=== PATIENT | female | born 1935 | race Caucasian/White ===

== ENCOUNTER 2019-06-16 09:43 | Outpatient (CLI) | payer MEDICARE, SELFPAY ==
--- NOTE | ~2019-06-16 | MR_ITS ---
EXAMINATION: MR lumbar spine wo con EXAM DATE: 06/16/2019 10:35 INDICATION: Lumbar radiculopathy, right leg, hip pain. History of breast cancer. TECHNIQUE: Multi-sequential, multiplanar MR images of the lumbar spine were obtained without contrast . Sagittal T1, T2, T2 fat saturation images. Axial T2 weighted images. There is no prior study for comparison. Correlation was made with x-ray 05/29/2019. FINDINGS: There is moderate disc disease L4-5 and L5-S1. There is 3 mm retrolisthesis L5 on S1. The v ertebral bodies are otherwise aligned. Mild disc disease at the upper lumbar levels. The conus medull randall terminates at the L1/2 level and has normal signal intensity and morphology. There are no suspi cious marrow signal abnormalities. Paraspinal soft tissue is unremarkable. Possible prior left hemila minotomy at L5, correlate with surgical history. Level by level evaluation: T12-L1: Disc does not extend beyond the endplate margin. Facet arthropathy: None. Neural foraminal stenosis: No stenosis. Central canal stenosis: No stenosis. L1-L2: There is a mild diffuse disc bulge. Facet arthropathy: Minimal. Neural foraminal stenosis: No stenosis. Central canal stenosis: No stenosis. L2-L3: There is a mild diffuse disc bulge. Facet arthropathy: Mild. Neural foraminal stenosis: Mild left. Central canal stenosis: No stenosis. L3-L4: There is a mild diffuse disc bulge. Facet arthropathy: Mild. Neural foraminal stenosis: Mild bilateral. Central canal stenosis: Mild. L4-L5: There is a mild to moderate diffuse disc bulge. Facet arthropathy: Mild to moderate . Ligamentum flavum enlargement. Neural foraminal stenosis: Moderate right, mild to moderate left. Central canal stenosis: Mild to moderate. L5-S1: There is a moderate diffuse disc bulge. Facet arthropathy: Mild to moderate. Neural foraminal stenosis: Moderate to severe left, mild to moderate right. Central canal stenosis: Mild. IMPRESSION: 1. Lower lumbar predominant spondylosis as detailed above. Reviewed, dictated and finalized at location B. INAL LEGAL ASSISTANT
== END 2019-06-16 09:44 | disposition home or self-care (01) ==
PROVIDERS: PCP Internal Medicine; Visit Provider Internal Medicine
DX: M47.26 Other spondylosis with radiculopathy, lumbar region (principal)
CPT/HCPCS: 72148

== ENCOUNTER 2019-06-19 15:30 | Outpatient (RCR) | payer MEDICARE, SELFPAY ==
--- NOTE | 2019-06-08 09:33 | PTOPEVAL ---
PHYSICAL THERAPY EVALUATION AND PLAN OF CARE 06-08-2019 The PT evaluation for the diagnosis of R leg and knee pain was completed today. The plan of treatment is for 2x/week for 3 weeks. Thank you for referring Mrs. Aldana to [facility]. Please review, sign, date and return this plan of care HIMA. I agree with and certify that the following plan of care is medically necessary. Referring Physician Date Attending Provider: Dashawn Armenta MD *PT Outpatient Evaluation Start: 06/08/19 08:23 Document 06/08/19 08:15 SHELL (Rec: 06/08/19 09:23 SHELL [email or web address]) Therapy Assessment Status Assessment Status Assessment Status Evaluation Outpatient Past Medical History Neurological History Hx Neurological Disorders No Significant History Cardiovascular History Hx Hypertension Yes: meds Respiratory History Hx Respiratory Disorders No Significant History Gastrointestinal History Hx Gastrointestinal Disorders No Significant History Genitourinary History Hx Genitourinary Disorders No Significant History Musculoskeletal History Hx Back Pain Yes: lumbar spacers in back 45 yr ago; no issues after Hx Other Musculoskeletal Disorders Yes: about 6 mo ago pain L lower leg, negative blood clot Endocrine History Hx Diabetes Yes: meds Hx Hypothyroidism Yes: meds HEENT History Hx Other HEENT Disorders Yes: wear glasses Integumentary History Hx Skin Disorders No Significant History Other History Hx Cancer Yes: Feb 2018-R breast lumpectomy and node removal Hx Chemotherapy Yes: difficulty with cancer maintenance meds-trying;Dr Reyez Hx Radiation Therapy Yes: 20 radiation treatments Evaluation Information Problem Diagnosis R leg and knee pain Onset Apr 08, 2019 Subjective Information onset of pain after cleaning Query Text:As Reported By Patient/ in basement, moving furniture; Family got worse, to ER Apr 20 and ; saw ortho ; pain is less than initially Diagnostic Tests X-Rays For This Problem Yes-lumbar severe disc degeneration /hip negative,knee negative Previous Treatments Previous Treatments For This Problem no PT treatments Prior Level of Function Activity Level (Last 3 Months) Occupation retired Hand Dominance Right Activity of Daily Living Ability Independent Indoor/Home Mobility Independent Community Mobility Independent Stairs Ability Independent Functional Cognition (Planning, Shopping Independent , Taking Medications) Cooking Yes Cleaning
--- NOTE | 2019-06-13 11:36 | PCPTNOTE ---
pt brought to dept a new order: from same dr, Dr Armenta with diagnosis of OA L umbar and R leg pain; her eval addressed hips and trunk, additional evaluation is not needed.
--- NOTE | 2019-06-26 09:06 | PCPTNOTE ---
Patient arrived to therapy session wanting to ask some questions about MRI results. She stated due to the MD findings with compression of spinal cord she was starting pain management this Tuesday and didn't see the need for physical therapy at this time. She doesn't want to do to much on the back without finding out from pain management MD on what she should do. Educated patient on importance of performing a stretching and exercise program at home. Advised PT of patients decision and will keep patient's chart open till she finds out more information from MD.
--- NOTE | 2019-07-13 08:30 | PCPTNOTE ---
PHYSICAL THERAPY DISCHARGE 07-13-2019 Attending Provider: Dashawn Armenta MD Patient:Allie Aldana Date of :1935 Mrs. Aldana has received 4 Physical Therapy sessions, from June 08 to June 26, for the diagnosis of LBP, pain in R leg and knee. She canceled 2 appointments. On June 26 she stated that she had an MRI and was referred to pain management dr and would let us know about any further PT or not. There was no further contact from pt, therefore she will be discharged from therapy at this time. The goals were not assessed. Thank you for referring Allie to [facility]. Please review, sign, date and return this discharge summary HIMA. I have been updated about the patient's current status and I agree with discharge from the above service at this time. Referring Physician Date
== END 2019-07-13 11:03 | disposition home or self-care (01) ==
LOC: ANHPT 15:30
PROVIDERS: PCP Internal Medicine; Visit Provider Orthopaedic Surgery
DX: M47.816 Spondylosis without myelopathy or radiculopathy, lumbar region (principal); M79.604 Pain in right leg
CPT/HCPCS: 97110; 97161

== ENCOUNTER 2019-09-14 09:23 | Outpatient (CLI) | payer MEDICARE, SELFPAY ==
--- NOTE | ~2019-09-14 | XR_ITS ---
XR thoracic spine 2V DATE: 09/14/2019 09:39 INDICATION: Thoracic spine pain between shoulders. No injury. TECHNIQUE: AP and lateral views COMPARISON: None FINDINGS: There is minimal dextroscoliosis. There is mild degenerative spurring. No fracture or dislocation or bone destruction is evident. The thoracic pedicles are intact. No clovis antwan soft tissue thickening. IMPRESSION: Mild scoliosis and degenerative change Reviewed, dictated and finalized at location A.
== END 2019-09-14 09:24 | disposition home or self-care (01) ==
PROVIDERS: PCP Internal Medicine; Visit Provider Internal Medicine
DX: M54.6 Pain in thoracic spine (principal); M41.84 Other forms of scoliosis, thoracic region
CPT/HCPCS: 72070

== ENCOUNTER 2020-07-17 10:30 | Outpatient (CLI) | payer MEDICARE, SELFPAY | END 2020-07-17 10:31 | disposition home or self-care (01) | LOC: ANHCOVIDVC 10:31 | PROVIDERS: PCP Internal Medicine | DX: Z23 Encounter for immunization (principal) | CPT/HCPCS: 0001A; 91300 ==

== ENCOUNTER 2020-08-07 10:26 | Outpatient (CLI) | payer MEDICARE, SELFPAY | END 2020-08-07 10:27 | disposition home or self-care (01) | LOC: ANHCOVIDVC 10:26 | PROVIDERS: PCP Internal Medicine | DX: Z23 Encounter for immunization (principal) | CPT/HCPCS: 0002A; 91300 ==

== ENCOUNTER 2021-06-30 16:36 | Outpatient (CLI) | payer MEDICARE, SELFPAY ==
--- NOTE | ~2021-06-30 | US_ITS ---
US renal BI 06/30/2021 17:14 Procedure: Realtime transabdominal ultrasound of the kidneys and bladder. Indication: Renal lesion Comparison: CT dated 08/26/2009. Findings: Renal echotexture is normal bilaterally without hydronephrosis, contour deforming mass or r enal calculus. The right kidney measures 9.2 cm and left kidney measures 9.0 cm. Bladder within norm al limits. Impression: 1: Unremarkable renal ultrasound. No stones, masses or hydronephrosis. Reviewed, dictated and finalized at location B. CTION MOLDING MACHINE OPERATOR Impression: 1: Unremarkable renal ultrasound. No stones, masses or hydronephrosis.
== END 2021-06-30 16:37 | disposition home or self-care (01) ==
PROVIDERS: PCP Internal Medicine; Visit Provider Internal Medicine
DX: N28.9 Disorder of kidney and ureter, unspecified (principal); Z78.0 Asymptomatic menopausal state
CPT/HCPCS: 76775

== ENCOUNTER 2021-08-05 12:29 | Outpatient (CLI) | payer MEDICARE, SELFPAY ==
--- NOTE | ~2021-08-05 | MR_ITS ---
EXAMINATION: MR knee RT wo con DATE: 08/05/2021 13:30 INDICATION: Right knee pain TECHNIQUE: Magnetic resonance imaging (MRI) of the right knee was performed without intravenous contr ast. Sequences included coronal PD-weighted FSE, coronal PD-weighted FS FSE, sagittal T2-weighted FS E, sagittal PD-weighted FS FSE and axial PD weighted fat saturated FSE. COMPARISON: None. FINDINGS: Medial compartment: Complex medial meniscal tear which includes a full-thickness radial component near the posterior root of the medial meniscus and a longitudinal horizontal tear plane extending to the inferior articular surface of the medial extruded meniscal body. There is extensive full and near full-thickness cartila ge loss at the central and anteromedial quadrant of the medial tibial plateau with underlying mild hoang barticular edema-like signal change and small region of cystlike change at the medial aspect of the m edial tibial plateau along the posterior margin of the region of significant cartilage loss. Addition al extensive full/near full-thickness cartilage loss along the anterior to central weightbearing medi al femoral condyle. There is extensive marrow-like marrow signal change along the medial margin of th e anterior weightbearing medial femoral condyle with single small focus of cystlike change. Lateral compartment: Small longitudinal horizontal tear extending to the inferior articular surface at the peripheral thir d of the lateral meniscal body and posterior horn. Articular cartilage is normal. Patellofemoral compartment: Small region of full-thickness chondral ulceration with underlying cortical irregularity with underly ing mild subarticular edema-like change. Shallow chondral ulceration along the medial trochlea. Deep chondral ulceration with underlying subtle cortical irregularity and mild cystlike change at the cent ral aspect of the medial trochlea. Ligaments and tendons: Anterior and posterior cruciate ligaments are normal. Mild thickening with minimal increased signal a nd without surrounding edema at the proximal medial and fibular collateral ligaments consistent with mild scarring related to chronic sprains. Mild distal quadriceps tendinopathy. The visualized medial and lateral hamstring tendons as well as the iliotibial band are normal. Fluid: Small right knee joint effusion at the suprapatellar pouch. No loose osteochondral bodies identified. Small to moderate-sized Calvo's cyst at the posterior medial aspect of the knee. Small amount of pre patellar edema without discrete bursal fluid collection. Osseous/other: No fracture or pathologic marrow replacing process. No fracture or abnormal marrow replacing process. IMPRESSION: 1. Complex medial meniscal tear with severe osteoarthritis and extensive high-grade chondral malacia in the medial compartment. 2. Small longitudinal horizontal tear of the lateral meniscus with relatively preserved cartilage in the lateral compartment. 3. Mild osteoarthritis with small regions of high-grade chondromalacia at the patellar apical ridge a nd medial trochlea. 4. Mild scarring consistent with chronic sprains of the proximal medial and fibular collateral ligame nts. 5. Small right knee joint effusion and moderate-sized Calvo's cyst. Reviewed, dictated and finalized at location A. IMPRESSION: 1. Complex medial meniscal tear with severe osteoarthritis and extensive high-g rade chondral malacia in the medial compartment. 2. Small longitudinal horizontal tear of the lateral meniscus with relatively p reserved cartilage in the lateral compartment. 3. Mild osteoarthritis with small regions of high-grade chondromalacia at the p atellar apical ridge and medial trochlea. 4. Mild scarring consistent wi
== END 2021-08-05 12:30 | disposition home or self-care (01) ==
PROVIDERS: PCP Internal Medicine; Visit Provider Nurse Practitioner Family
DX: M17.11 Unilateral primary osteoarthritis, right knee (principal); S83.231A Complex tear of medial meniscus, current injury, right knee, initial encounter; X58.XXXA Exposure to other specified factors, initial encounter; M25.461 Effusion, right knee
CPT/HCPCS: 73721

== ENCOUNTER 2021-09-18 11:02 | Outpatient (CLI) | payer MEDICARE, SELFPAY ==
--- NOTE | ~2021-09-18 | XR_ITS ---
XR chest 2V DATE: 09/18/2021 11:26 INDICATION: Preoperative examination. Diabetes. Hypertension. TECHNIQUE: 2 views COMPARISON: 04/13/2017 two-view chest FINDINGS: Surgical clips, right breast. Normal heart size. There is thoracic and abdominal aortic calcification. No hilar or mediastinal enlargement. Small hiatal hernia. No pulmonary infiltrate or consolidation, pleural effusion or pulmonary vascular congestion or pneumo thorax. Diffuse osteopenia. Dextroscoliosis of the thoracolumbar spine. IMPRESSION: No active cardiopulmonary disease Thoracic and abdominal aortic atherosclerosis Small hiatal hernia No active pulmonary disease Postoperative change of the right breast Osteopenia Reviewed, dictated and finalized at location B.
== END 2021-09-18 11:03 | disposition home or self-care (01) ==
PROVIDERS: PCP Internal Medicine; Visit Provider Internal Medicine
DX: Z01.810 Encounter for preprocedural cardiovascular examination (principal); K44.9 Diaphragmatic hernia without obstruction or gangrene; M41.9 Scoliosis, unspecified; I70.0 Atherosclerosis of aorta
CPT/HCPCS: 71046

== ENCOUNTER 2022-02-11 12:31 | Outpatient (CLI) | payer MEDICARE, SELFPAY ==
--- NOTE | ~2022-02-11 | DEXA_ITS ---
Bone Density Report Name: DEVONTE MEAD Age: 86 Sex: Female Ethnicity: White Date of : 1935 Indication: postmenopausal; screening for osteoporosis; height loss; Referring Provider: ERICH, RONAK Study: Bone densitometry was performed. Exam Date: February 11, 2022 Accession number: [id number] Bone Density: Region BMD T-score Z-score Classification AP Spine(L1-L4) 0.958 -0.8 2.1 Normal Femoral Neck (Left) 0.737 -1.0 1.5 Normal Total Hip (Left) 0.890 -0.4 1.9 Normal Femoral Neck (Right) 0.711 -1.2 1.3 Osteopenia Total Hip (Right) 0.855 -0.7 1.6 Normal Total Hip Mean 0.873 -0.6 1.8 Normal World Health Organization criteria for BMD impression classify patients as: Normal (T-score at or above -1.0), Osteopenia (T-score between -1.0 and -2.5), or Osteoporosis (T-score at or below -2.5). 10-year Fracture Risk(1): Major Osteoporotic Fracture 11% Hip Fracture 2.8% Reported Risk Factors: [place] (), Neck BMD=0.711, BMI=31.8 (1) FRAX(R) Version 3.08. Fracture probability calculated for an untreated patient. Fracture probability may be lower if the patient has received treatment. Clinical Information Provided by Patient: Has used the following medications: Vitamin D, Calcium Patient maximum height was 64 Menopause Age: 51 No regular weight bearing exercise Drinks caffeinated beverages Onset of menses at age 12 Number of children 2 Impression: The patient has low bone mass, based on the Right Femoral Neck T-score. The patient has an estimated ten-year risk of hip fracture of 2.8% and an estimated ten-year risk of major fracture of 11%, based on the WHO FRAX algorithm. Discussion: BONE DENSITY IS LOW AT ONE OR MORE SKELETAL SITES. This patient's lowest T-score is low at one or more skeletal sites. It meets the World Health Organization's (WHO) criteria for ?low bone mass? (T-score between -1.0 and -2.5). The patient's 10-year risk of fracture as calculated by FRAX is less than the threshold where pharmacological therapy is recommended by the National Osteoporosis Foundation (NOF). However, all treatment decisions require clinical judgment and consideration of individual patient factors, including patient preferences, comorbidities, previous drug use, risk factors not captured in the FRAX model (e.g., frailty, falls, vitamin D deficiency, increased bone turnover, interval significant decline in bone density) and possible under or overestimation of fracture risk by FRAX. The patient should follow a healthful lifestyle (good nutrition with adequate calcium and vitamin D, and appropriate weight-bearing exercise). Follow-Up: Consider repeating this study in 2 to 3 years to reassess this patient's status, or sooner if there is some new clinical indication. Reported
== END 2022-02-11 12:32 | disposition home or self-care (01) ==
PROVIDERS: PCP Internal Medicine; Visit Provider Internal Medicine
DX: Z78.0 Asymptomatic menopausal state (principal); M85.851 Other specified disorders of bone density and structure, right thigh
CPT/HCPCS: 77080